=== PATIENT | female | born 1970 | race Caucasian/White ===

== ENCOUNTER 2018-02-07 09:30 | Day surgery (SDC) | payer BC ==
[~2018-02-07] VITALS: Ht 165.1 cm; Wt 53.5 kg
[~2018-02-07 09:30] MED LIST: AZAT50; Activella 0.5-1 EACH PO; Balsalazide Di750 MG; COMBIPATCH TD; ESTNOR; PRED10 PO; Remicade100 MG IV; ZOLP5 PO
[2018-02-07] MEDS ORDERED: ENTYVIO300 MG IV (09:59)
[2018-02-07] MEDS ORDERED: UCERIS9 MG PO (10:00)
[2018-02-07] MEDS ORDERED: Canasa1000 MG PR (10:00)
== END 2018-02-07 22:57 | disposition home or self-care (01) ==
LOC: SDS 09:30 → ORSCMMR 09:30 → ORD 11:00 → ORSCMMR 22:57
PROVIDERS: Internal Medicine Gastroenterology
PROC: 0DBE8ZX Excision of Large Intestine, Via Natural or Artificial Opening Endoscopic, Diagnostic (ICD-10-PCS; principal; 2018-02-07 11:00)
PROC: 0DBP8ZX Excision of Rectum, Via Natural or Artificial Opening Endoscopic, Diagnostic (ICD-10-PCS; principal; 2018-02-07 11:00)
DX: K51.90 Ulcerative colitis, unspecified, without complications (principal); K62.1 Rectal polyp
CPT/HCPCS: 88305; J7120